=== PATIENT | male | born 1955 | race African-American/Black ===

== ENCOUNTER 2020-08-21 10:02 | Emergency (ER) | payer MEDICARE, MEDICAID ==
[~2020-08-21] VITALS: Ht 185.4 cm; Wt 77.0 kg
[2020-08-21] MEDS ORDERED: ONDANSETRON HCL 4MG/2ML INJ IV STA (10:29)
[2020-08-21] MEDS ORDERED: ASPIRIN 81MG TABLET PO ONE (10:30)
[2020-08-21 11:01] LABS: BASOPHILS % 0.8 % (0.0-2.0); EOSINOPHILS % 0.5 % (0.0-5.0); HEMATOCRIT. 36.9 % (42.0-52.0); HEMOGLOBIN. 12.2 g/dL (14.0-18.0); LYMPHOCYTES % 18.5 % (20.0-50.0); MEAN CORPUSCULAR HEMOGLOBIN 27.6 pg (28.0-32.0); MEAN CORPUSCULAR VOLUME 83.4 fL (80.0-94.0); MEAN PLATELET VOLUME 8.8 fl (7.4-10.4); MONOCYTES % 2.9 % (2.0-8.0); NEUTROPHILS % 77.3 % (40.0-76.0); PLATELET 171 x1000/uL (130-400); RED BLOOD CELL COUNT 4.43 mill/uL (4.7-6.1); RED CELL DISTRIBUTION WIDTH 15.3 % (11.6-14.6)
[2020-08-21 11:04] LABS: CHLORIDE 106 mEq/L (98-107)
[2020-08-21 11:11] LABS: PARTIAL THROMBOPLASTIN TIME 22.4 sec (23.4-31.0); PROTHROMBIN TIME 10.3 sec (9.6-11.0)
[2020-08-21 13:05] VITALS: BP 161/133
[2020-08-21 13:51] LABS: CLARITY URINE CLEAR (CLEAR); COLOR URINE YELLOW (YELLOW); KETONES URINE NEGATIVE (NEGATIVE); LEUKOCYTE ESTERASE URINE NEGATIVE (NEGATIVE); NITRITE URINE NEGATIVE (NEGATIVE); OCCULT BLOOD URINE NEGATIVE (NEGATIVE); PROTEIN URINE 1+ (NEGATIVE); SPECIFIC GRAVITY URINE 1.025 (1.005-1.030); UROBILINOGEN URINE 0.2 E.U./dL (0.2-1.0)
== END 2020-08-21 16:32 | disposition short-term general hospital (02) ==
LOC: ER 10:02
DX: R06.09 Other forms of dyspnea (principal); R19.7 Diarrhea, unspecified; Z20.822 Contact with and (suspected) exposure to COVID-19; R11.10 Vomiting, unspecified; I11.0 Hypertensive heart disease with heart failure; I50.9 Heart failure, unspecified; E11.9 Type 2 diabetes mellitus without complications; Z79.899 Other long term (current) drug therapy; E78.00 Pure hypercholesterolemia, unspecified
CPT/HCPCS: 36415; 71045; 80053; 81003; 83690; 83880; 84484; 85025; 85610; 85730; 87086; 93005; 96374; 99285; C9803; J2405; U0003

== ENCOUNTER 2022-07-15 21:39 | Emergency (ER) | payer MEDICARE, MEDICAID ==
[~2022-07-15] VITALS: Ht 175.3 cm; Wt 100.0 kg
[2022-07-15 23:14] LABS: BASOPHILS % 0.4 % (0.0-2.0); EOSINOPHILS % 2.7 % (0.0-5.0); HEMOGLOBIN. 7.5 g/dL (14.0-18.0); LYMPHOCYTES % 13.2 % (20.0-50.0); MEAN CORPUSCULAR HEMOGLOBIN 28.4 pg (28.0-32.0); MEAN PLATELET VOLUME 8.1 fl (7.4-10.4); MONOCYTES % 12.2 % (2.0-8.0); NEUTROPHILS % 71.5 % (40.0-76.0); PLATELET 225 x1000/uL (130-400); RED BLOOD CELL COUNT 2.65 mill/uL (4.7-6.1); RED CELL DISTRIBUTION WIDTH 16.8 % (11.6-14.6)
[2022-07-15 23:19] LABS: CHLORIDE 105 mEq/L (98-107)
[2022-07-15 23:28] LABS: CREATINE KINASE 100 IU/L (39-308); ETHANOL BLOOD < 10 mg/dL
[2022-07-16 01:30] VITALS: BP 156/78
[2022-07-16 01:46] LABS: CLARITY URINE CLEAR (CLEAR); COLOR URINE YELLOW (YELLOW); KETONES URINE NEGATIVE (NEGATIVE); LEUKOCYTE ESTERASE URINE 1+ (NEGATIVE); NITRITE URINE NEGATIVE (NEGATIVE); OCCULT BLOOD URINE 1+ (NEGATIVE); PROTEIN URINE 3+ (NEGATIVE); SPECIFIC GRAVITY URINE 1.012 (1.005-1.030); UROBILINOGEN URINE 0.2 E.U./dL (0.2-1.0)
[2022-07-16 02:02] LABS: *AMPHETAMINES SCREEN URINE NEGATIVE (NEGATIVE); *BARBITURATES SCREEN URINE NEGATIVE (NEGATIVE); *BENZODIAZEPINES SCREEN URINE NEGATIVE (NEGATIVE); *COCAINE SCREEN URINE NEGATIVE (NEGATIVE); CANNABINOID URINE SCREEN PRESUMTIVE POSITIVE (NEGATIVE); METHADONE URINE SCREEN NEGATIVE (NEGATIVE); OPIATES URINE SCREEN NEGATIVE (NEGATIVE); PHENCYCLIDINE URINE SCREEN NEGATIVE (NEGATIVE)
== END 2022-07-16 01:59 | disposition home or self-care (01) ==
LOC: ER 21:39
DX: T50.991A Poisoning by other drugs, medicaments and biological substances, accidental (unintentional), initial encounter (principal); Y92.89 Other specified places as the place of occurrence of the external cause; D64.9 Anemia, unspecified; N18.6 End stage renal disease; M79.604 Pain in right leg; M79.605 Pain in left leg; M79.89 Other specified soft tissue disorders
CPT/HCPCS: 36415; 80053; 80305; 80307; 80320; 80329; 81003; 82550; 83605; 85025; 87077; 87186; 99283; G0480

== ENCOUNTER 2023-06-14 04:29 | Inpatient (IN) | payer MEDICARE, MEDICAID ==
[~2023-06-14] VITALS: Ht 170.2 cm; Wt 83.0 kg
[~2023-06-14 04:29] MED LIST: METO-385 PO
[2023-06-14 07:58] LABS: HEMATOCRIT. 26.9 % (42.0-52.0); HEMOGLOBIN. 8.7 g/dL (14.0-18.0); MEAN CORPUSCULAR HEMOGLOBIN 28.8 pg (28.0-32.0); MEAN CORPUSCULAR HGB CONC 32.4 g/dL (31.0-37.0); MEAN CORPUSCULAR VOLUME 88.8 fL (80.0-94.0); MEAN PLATELET VOLUME 7.5 fl (7.4-10.4); PLATELET 156 x1000/uL (130-400); RED BLOOD CELL COUNT 3.03 mill/uL (4.7-6.1); RED CELL DISTRIBUTION WIDTH 24.5 % (11.6-14.6)
[2023-06-14 08:08] LABS: DIFFERENTIAL COMMENT 1
[2023-06-14 08:19] LABS: ALANINE AMINOTRANSFERASE 22 IU/L (10-49); ALBUMIN 3.9 g/dL (3.2-4.8); ASPARTATE AMINOTRANSFERASE 30 IU/L (<34); CALCIUM 9.2 mg/dL (8.7-10.4); CARBON DIOXIDE 20 mEq/L (21-32); CHLORIDE 107 mEq/L (98-107); CREATININE 2.5 mg/dL (0.6-1.3); GLUCOSE 88 mg/dL (70-105); POTASSIUM 5.3 mEq/L (3.5-5.1); PROTEIN TOTAL 6.3 g/dL (6.0-8.3); SODIUM 136 mEq/L (136-145); TROPONIN I HIGH SENSITIVITY 36 ng/L (3.0-53); UREA NITROGEN BLOOD 36 mg/dL (9-23)
[2023-06-14 08:42] LABS: ANISOCYTOSIS 3+; OVALOCYTES 1+; PLATELET ESTIMATE NORMAL
[2023-06-14 10:04] LABS: TROPONIN I HIGH SENSITIVITY 33 ng/L (3.0-53)
[2023-06-14] MEDS ORDERED: SODIUM POLYSTYRENE SULFONATE 15 G/60 ML BOT PO NR (10:30)
[2023-06-14] MEDS ORDERED: CLONIDINE 0.1MG TABLET PO PRN (10:30)
[2023-06-14] MEDS ORDERED: MAGNESIUM/ALUMINUM HYDROXIDE/SIMETHICONE 30ML UDC PO PRN (10:30)
[2023-06-14] MEDS ORDERED: ONDANSETRON HCL 4MG/2ML INJ IV PRN (10:30)
[2023-06-14] MEDS ORDERED: DEXTROSE 50% WATER 50ML SYRINGE IV PRN (10:30)
[2023-06-14] MEDS ORDERED: GUAIFENESIN 200MG/10ML SUGAR FREE UDC PO PRN (10:30)
[2023-06-14] MEDS ORDERED: IPRATROPIUM/ALBUTEROL 0.5-3(2.5)MG/3ML NEB NEB PRN (10:30)
[2023-06-14] MEDS ORDERED: ACETAMINOPHEN 325MG TABLET PO PRN ×2 (10:30)
[2023-06-14] MEDS ORDERED: ENOXAPARIN 40MG/0.4ML SYR SUBCUT SCH (10:30)
[2023-06-14] MEDS ORDERED: NITROGLYCERIN 0.4MG TABLET SL SL PRN (10:30)
[2023-06-14] MEDS ORDERED: AMLODIPINE 5MG TABLET PO NR (10:45)
[2023-06-14] MEDS: FUROSEMIDE 40MG/4ML VIAL IVP SCH ×2 (10:49→17:08)
[2023-06-14] MEDS: ENOXAPARIN 30MG/0.3ML SYR SUBCUT SCH (10:50)
[2023-06-14] MEDS: ASPIRIN 325MG EC TABLET PO SCH (10:50)
[2023-06-14 13:16] LABS: VITAMIN B12 SERUM 801 pg/mL (211-911)
[2023-06-14] MEDS: INSULIN LISPRO 100 UNITS/ML SUBCUT SCH ×3 (13:20→21:00)
[2023-06-14 14:19] LABS: CHOLESTEROL 105 mg/dL (<200); HDL CHOLESTEROL 36 mg/dL (>55); IRON 21 ug/dL (65-175); LDL CHOLESTEROL 56 mg/dL (5-100); T4 FREE 1.13 ng/dL (0.89-1.76); THYROID STIMULATING HORMONE 2.49 uIU/mL (0.55-4.78); TRIGLYCERIDE 82 mg/dL (0-150)
[2023-06-14] MEDS: BLOOD SUGAR DIAGNOSTIC STRIP TEST SCH ×3 (14:19→21:00)
[2023-06-14 14:24] LABS: TOTAL IRON BINDING CAPACITY > 670 ug/dl (250-425)
[2023-06-14 16:10] VITALS: BP 175/107; PULSE 81; RESP 18; TEMP 97.5
[2023-06-14 17:42] VITALS: BP 175/107; PULSE 107; RESP 20; TEMP 97.5
[2023-06-14] MEDS ORDERED: APIX5TAB PO (17:50)
[2023-06-14 20:00] VITALS: BP 142/71; PULSE 78; RESP 18; TEMP 97.8
[2023-06-14] MEDS ORDERED: ZOLPIDEM TARTRATE 5MG TABLET PO PRN (21:00)
[2023-06-14] MEDS: FAMOTIDINE 20MG TABLET PO SCH (22:03)
[2023-06-14 22:31] LABS: CREATINE KINASE 51 IU/L (46-171); CREATINE KINASE MB FRACTION 2.1 ng/mL (0.5-3.6); TROPONIN I HIGH SENSITIVITY 40 ng/L (3.0-53)
[2023-06-15] VITALS (7 sets, daily range): BP systolic 104–139; BP diastolic 54–68; PULSE 64–78; RESP 16–20; TEMP 97.8–98.5
[2023-06-15 07:03] LABS: HEMATOCRIT. 24.3 % (42.0-52.0); HEMOGLOBIN. 8.2 g/dL (14.0-18.0); MEAN CORPUSCULAR HEMOGLOBIN 28.9 pg (28.0-32.0); MEAN CORPUSCULAR HGB CONC 33.6 g/dL (31.0-37.0); MEAN CORPUSCULAR VOLUME 86.1 fL (80.0-94.0); MEAN PLATELET VOLUME 7.6 fl (7.4-10.4); PLATELET 126 x1000/uL (130-400); RED BLOOD CELL COUNT 2.82 mill/uL (4.7-6.1); RED CELL DISTRIBUTION WIDTH 24.2 % (11.6-14.6)
[2023-06-15] MEDS: BLOOD SUGAR DIAGNOSTIC STRIP TEST SCH ×4 (07:10→21:00)
[2023-06-15 07:18] LABS: DIFFERENTIAL COMMENT 1
[2023-06-15 07:40] LABS: ALANINE AMINOTRANSFERASE 19 IU/L (10-49); ALBUMIN 3.2 g/dL (3.2-4.8); ASPARTATE AMINOTRANSFERASE 24 IU/L (<34); CALCIUM 8.8 mg/dL (8.7-10.4); CARBON DIOXIDE 20 mEq/L (21-32); CHLORIDE 106 mEq/L (98-107); CREATINE KINASE 43 IU/L (46-171); CREATINE KINASE MB FRACTION 1.8 ng/mL (0.5-3.6); CREATININE 2.9 mg/dL (0.6-1.3); GLUCOSE 138 mg/dL (70-105); PHOSPHORUS 4.4 mg/dL (2.5-4.9); POTASSIUM 4.6 mEq/L (3.5-5.1); PROTEIN TOTAL 5.3 g/dL (6.0-8.3); SODIUM 137 mEq/L (136-145); TROPONIN I HIGH SENSITIVITY 46 ng/L (3.0-53); UREA NITROGEN BLOOD 40 mg/dL (9-23)
[2023-06-15] MEDS: INSULIN LISPRO 100 UNITS/ML SUBCUT SCH ×4 (07:40→22:06)
[2023-06-15] MEDS ORDERED: AMLODIPINE 10MG TABLET PO SCH (09:00)
[2023-06-15] MEDS: ASPIRIN 325MG EC TABLET PO SCH (11:24)
[2023-06-15] MEDS: FERROUS SULFATE 325MG TABLET PO SCH ×3 (11:24→19:24)
[2023-06-15] MEDS: FUROSEMIDE 40MG/4ML VIAL IVP SCH ×2 (11:24→19:24)
[2023-06-15] MEDS: ENOXAPARIN 30MG/0.3ML SYR SUBCUT SCH (11:25)
[2023-06-15] MEDS: DOCUSATE SODIUM 100MG CAPSULE PO PRN (11:25)
[2023-06-15 15:51] LABS: NUCLEATED RED BLOOD CELLS 7 /100 WBC; PLATELET ESTIMATE SLIGHTLY DECREASED
[2023-06-15 15:52] LABS: ANISOCYTOSIS 4+
[2023-06-15 18:44] LABS: D-DIMER 2.36 mg/L FEU (<0.50); INR 1.2; PROTHROMBIN TIME 12.8 sec (9.6-11.0)
[2023-06-16] VITALS: BP 132/52; PULSE 71; RESP 16; TEMP 98.4
[2023-06-16 04:00] VITALS: BP 135/58; PULSE 70; RESP 18; TEMP 98.2
[2023-06-16] MEDS: BLOOD SUGAR DIAGNOSTIC STRIP TEST SCH ×4 (07:10→21:29)
[2023-06-16 07:40] LABS: HEMATOCRIT 25.3 % (42.0-52.0); HEMOGLOBIN 8.4 g/dL (14.0-18.0); MEAN CORPUSCULAR VOLUME 87.7 fL (80.0-94.0); PLATELET 111 x1000/uL (130-400); RED BLOOD CELL COUNT 2.89 mill/uL (4.7-6.1); RED CELL DISTRIBUTION WIDTH 23.2 % (11.6-14.6); WHITE BLOOD COUNT 3.2 x1000/uL (4.5-11.0)
[2023-06-16] MEDS: INSULIN LISPRO 100 UNITS/ML SUBCUT SCH ×4 (07:40→21:00)
[2023-06-16 08:00] VITALS: BP 159/89; PULSE 72; RESP 18; TEMP 97.8
[2023-06-16 08:54] LABS: CALCIUM 9.1 mg/dL (8.7-10.4); CREATININE 2.8 mg/dL (0.6-1.3); POTASSIUM 4.7 mEq/L (3.5-5.1)
[2023-06-16] MEDS: FERROUS SULFATE 325MG TABLET PO SCH ×3 (09:00→17:02)
[2023-06-16] MEDS: FUROSEMIDE 40MG/4ML VIAL IVP SCH ×2 (09:00→17:02)
[2023-06-16] MEDS: ENOXAPARIN 30MG/0.3ML SYR SUBCUT SCH (09:00)
[2023-06-16] MEDS: ASPIRIN 325MG EC TABLET PO SCH (09:00)
[2023-06-16 12:00] VITALS: BP 144/85; PULSE 85; RESP 18; TEMP 97.7
[2023-06-16 16:00] VITALS: BP 131/78; PULSE 69; RESP 18; TEMP 98.3
[2023-06-16] MEDS: METOPROLOL SUCCINATE 50MG ER TABLET PO SCH (17:02)
[2023-06-16 17:07] LABS: CLARITY URINE CLEAR (CLEAR); COLOR URINE YELLOW (YELLOW); GLUCOSE URINE NEGATIVE (NEGATIVE); KETONES URINE NEGATIVE (NEGATIVE); NITRITE URINE NEGATIVE (NEGATIVE); OCCULT BLOOD URINE TRACE (NEGATIVE); PROTEIN URINE TRACE (NEGATIVE); UROBILINOGEN URINE 0.2 E.U./dL (0.2-1.0)
[2023-06-16 17:08] LABS: LEUKOCYTE ESTERASE URINE NEGATIVE (NEGATIVE)
[2023-06-16 17:18] LABS: *AMPHETAMINES SCREEN URINE NEGATIVE (NEGATIVE); *BARBITURATES SCREEN URINE NEGATIVE (NEGATIVE); *BENZODIAZEPINES SCREEN URINE NEGATIVE (NEGATIVE); *COCAINE SCREEN URINE NEGATIVE (NEGATIVE); CANNABINOID URINE SCREEN NEGATIVE (NEGATIVE); ECSTASY MDMA SCREEN URINE NEGATIVE (NEGATIVE); METHADONE URINE SCREEN Neg (NEGATIVE); OPIATES URINE SCREEN NEGATIVE (NEGATIVE); PHENCYCLIDINE URINE SCREEN NEGATIVE (NEGATIVE)
[2023-06-16 17:49] LABS: BACTERIA URINE TRACE; RBC URINE 0-2 /hpf (0-2); SQUAMOUS EPITHELIAL CELL URINE RARE /lpf (RARE/1+); WBC URINE 0-2 /hpf (0-2)
[2023-06-16 20:00] VITALS: BP 127/85; PULSE 80; RESP 19; TEMP 99.7
[2023-06-16] MEDS ORDERED: ATORVASTATIN CALCIUM 40MG TABLET PO SCH (21:00)
[2023-06-16] MEDS: FAMOTIDINE 20MG TABLET PO SCH (21:11)
[2023-06-17] VITALS: BP 144/68; RESP 18; TEMP 98.5
[2023-06-17 04:00] VITALS: BP 137/67; PULSE 85; RESP 16; TEMP 98.6
[2023-06-17] MEDS: BLOOD SUGAR DIAGNOSTIC STRIP TEST SCH (06:49)
[2023-06-17] MEDS: INSULIN LISPRO 100 UNITS/ML SUBCUT SCH (06:50)
[2023-06-17 08:00] VITALS: BP 159/77; PULSE 78; RESP 20; TEMP 97
[2023-06-17 08:00] LABS: HEMATOCRIT. 23.7 % (42.0-52.0); HEMOGLOBIN. 7.9 g/dL (14.0-18.0); MEAN CORPUSCULAR HEMOGLOBIN 29.3 pg (28.0-32.0); MEAN CORPUSCULAR HGB CONC 33.5 g/dL (31.0-37.0); MEAN CORPUSCULAR VOLUME 87.5 fL (80.0-94.0); MEAN PLATELET VOLUME 8.2 fl (7.4-10.4); PLATELET 98 x1000/uL (130-400); RED BLOOD CELL COUNT 2.71 mill/uL (4.7-6.1); RED CELL DISTRIBUTION WIDTH 23.5 % (11.6-14.6); WHITE BLOOD COUNT 3.1 x1000/uL (4.5-11.0)
[2023-06-17 08:19] LABS: CALCIUM 8.7 mg/dL (8.7-10.4); CREATININE 2.6 mg/dL (0.6-1.3); POTASSIUM 3.7 mEq/L (3.5-5.1)
[2023-06-17 08:32] LABS: DIFFERENTIAL COMMENT 1
[2023-06-17] MEDS ORDERED: ASPIRIN 81MG EC TABLET PO SCH (09:00)
[2023-06-17] MEDS: FUROSEMIDE 40MG/4ML VIAL IVP SCH (09:12)
[2023-06-17] MEDS: FERROUS SULFATE 325MG TABLET PO SCH (09:12)
[2023-06-17] MEDS: DOCUSATE SODIUM 100MG CAPSULE PO PRN (09:12)
[2023-06-17] MEDS: METOPROLOL SUCCINATE 50MG ER TABLET PO SCH (09:12)
[2023-06-17] MEDS ORDERED: FURO-151 MT ×2 (09:16)
[2023-06-17 09:25] VITALS: BP 150/77; PULSE 78; RESP 20; TEMP 97.9
[2023-06-17 11:55] VITALS: BP 140/82; PULSE 83; TEMP 96.8; O2SAT 95
[2023-06-17 12:00] VITALS: BP 140/82; PULSE 83; RESP 19; TEMP 96.8
[2023-06-17 14:33] LABS: ANISOCYTOSIS 3+; NUCLEATED RED BLOOD CELLS 2 /100 WBC; PLATELET ESTIMATE DECREASED
[2023-06-18] MEDS ORDERED: METO-385 MT (08:33)
[2023-06-18] MEDS ORDERED: APIX5TAB MT (08:33)
[2023-06-18] MEDS ORDERED: FURO-151 MT (08:33)
[2023-06-18] MEDS ORDERED: FAMO-135 MT (08:33)
== END 2023-06-17 12:40 | disposition home or self-care (01) | DRG 291 ==
LOC: ER 04:29 → 8WST 08:31 → EDBEDREQ 08:33 → EDBEDREQTM 08:33
PROVIDERS: ADMIT Internal Medicine; ATTEND Internal Medicine
DX: I13.0 Hypertensive heart and chronic kidney disease with heart failure and stage 1 through stage 4 chronic kidney disease, or unspecified chronic kidney disease (principal); I50.43 Acute on chronic combined systolic (congestive) and diastolic (congestive) heart failure; E87.20 Acidosis, unspecified; N17.9 Acute kidney failure, unspecified; D63.8 Anemia in other chronic diseases classified elsewhere; E11.22 Type 2 diabetes mellitus with diabetic chronic kidney disease; E61.1 Iron deficiency; E87.5 Hyperkalemia; N18.32 Chronic kidney disease, stage 3b; I27.20 Pulmonary hypertension, unspecified; D72.819 Decreased white blood cell count, unspecified; C67.9 Malignant neoplasm of bladder, unspecified; I34.0 Nonrheumatic mitral (valve) insufficiency; D69.6 Thrombocytopenia, unspecified; Z79.899 Other long term (current) drug therapy; Z85.51 Personal history of malignant neoplasm of bladder; Z88.0 Allergy status to penicillin; Z92.3 Personal history of irradiation; Z82.49 Family history of ischemic heart disease and other diseases of the circulatory system; Z83.3 Family history of diabetes mellitus
CPT/HCPCS: 36415; 71045; 76770; 80048; 80053; 80061; 80305; 81003; 82550; 82553; 82607; 82746; 82962; 83036; 83540; 83550; 83735; 83880; 84100; 84439; 84443; 84484; 85025; 85027; 85379; 93005; 93306; 93970; 99285; J1650; J1815; J1940

== ENCOUNTER 2023-12-13 23:01 | Emergency (ER) | payer MEDICARE, MEDICAID ==
[~2023-12-13] VITALS: Ht 185.4 cm; Wt 73.0 kg
[~2023-12-13 23:01] MED LIST changes: +APIX5TAB MT; +FAMO-135 MT; +FURO-151 MT; +METO-385 MT; -METO-385 PO
[2023-12-13 23:25] VITALS: BP 183/80; PULSE 62; RESP 18; TEMP 98.3; O2SAT 99
[2023-12-13] MEDS ORDERED: HYDROCODONE/ACETAMINOPHEN 5/325MG TABLET PO ONE (23:30)
[2023-12-14] MEDS: HYDROCODONE/ACETAMINOPHEN 5/325MG TABLET PO NR (00:44)
[2023-12-14] MEDS ORDERED: TRAM50TA3 MT (01:28)
== END 2023-12-14 01:49 | disposition home or self-care (01) ==
LOC: ER 23:01
DX: R10.30 Lower abdominal pain, unspecified (principal); I11.0 Hypertensive heart disease with heart failure; I50.9 Heart failure, unspecified; E11.9 Type 2 diabetes mellitus without complications; Z85.9 Personal history of malignant neoplasm, unspecified
CPT/HCPCS: 76857; 99284